=== PATIENT | female | born 1960 | race Caucasian/White ===

== ENCOUNTER 2024-07-17 02:19 | Emergency (ER) | payer BC, SELFPAY ==
[2024-07-17 02:22] VITALS: BP 154/86
[2024-07-17] MEDS: NSS 500 IV ×2 (02:43→05:07)
[2024-07-17] MEDS: ZOFRAN 4 MG IV ×2 (02:43→05:08)
[2024-07-17] MEDS: TORADOL 30 MG IV (02:50)
[2024-07-17 02:56] LABS: % Basophils 0.4 % (0-2); % Eosinophils 0.1 % (0-6); % Immature Granulocytes 0.4 % (0-0.5); % Lymphocytes 9.7 % (20.5-51.1); % Monocytes 5.3 % (1.7-9.3); % Neutrophils 84.1 % (42.2-75.2); Absolute Lymphocytes 0.9 10^3/uL (1.2-3.4); Absolute Monocytes 0.5 10^3/uL (0.1-0.6); Absolute Neutrophils 7.9 10^3/uL (1.4-6.5); Hematocrit 39.9 % (37.0-47.0); Hemoglobin 13.9 g/dL (12.0-16.0); Mean Corp Hgb Conc. 34.8 g/dL (33.0-37.0); Mean Corpuscular Hgb 29.7 pg (27.0-31.0); Mean Corpuscular Volume 85.3 fL (81.0-99.0); Mean Platelet Volume 9.2 fL (7.4-10.4); Nucleated Red Blood Cells % 0 %; Platelet Count 240 10^3/uL (130-400); Red Blood Cell Count 4.68 10^6/uL (4.20-5.40); Red Cell Dist. Width 12.7 % (11.5-14.5); White Blood Cell Count 9.4 10^3/uL (4.8-10.8)
[2024-07-17 03:00] LABS: Urine Albumin 2+ (Neg - Trace); Urine Bilirubin 3+ (Negative); Urine Character Cloudy (Clear); Urine Glucose Negative (Negative); Urine Ketone 3+ (Negative); Urine Leukocyte 2+ (Negative); Urine Nitrite Positive (Negative); Urine Occult Blood 3+ (Negative); Urine Urobilinogen 3+ (Neg - 1+); Urine pH 6.5 (5.0-9.0)
[2024-07-17 03:22] LABS: ALT (SGPT) 32 U/L (0-35); AST (SGOT) 37 U/L (14-36); Albumin 5.1 g/dl (3.5-5.0); Alkaline Phosphatase 98 U/L (38-126); Blood Urea Nitrogen 21 mg/dl (7-17); Calcium 10.4 mg/dl (8.4-10.2); Carbon Dioxide 22 mmol/L (22-30); Chloride 101 mmol/L (98-107); Glucose 150 mg/dl (70-99); Potassium 3.7 mmol/L (3.5-5.1); Sodium 138 mmol/L (135-145); Total Bilirubin 1.2 mg/dl (0.2-1.3); Total Protein 7.9 g/dl (6.3-8.2); eGFR > 60.00
[2024-07-17 03:42] LABS: Urine Color Orange
--- NOTE | 2024-07-17 04:44 | ED.GENMED ---
History of Present Illness
General
Chief Complaint: Flank Pain
Source: patient and spouse
Exam Limitations: none
Time Seen by Provider: 07/17/24 04:33
Nursing documentation reviewed up to this point in time: agreed with
History of Present Illness
History of Present Illness:
This is a 64-year-old woman with history of kidney stones reportedly passing stones uneventfully a 1 year ago as well as 2 to 3 years ago.
She underwent outpatient imaging last month and was noted to have several small nonobstructing right renal calculi.
Yesterday morning she developed urinary frequency, mild dysuria and thought that she had a UTI. She presented to urgent care and was started on Cipro for which she has had 1 dose. She has not had a fever nor chills. She then developed right flank
pain associated with nausea and vomiting around 4 to 5 PM. Initially mildly improved with Percocet but flank pain has worsened since midnight, radiates to right lower quadrant associated with nausea with multiple episodes of vomiting/dry heaves.
Current symptoms feel very similar to previous episode of kidney stones.
She denies diarrhea or constipation.
She has history of left foot fracture, fracture repair currently in a walking boot.
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
Past History
Past History
ED Past Medical History: CAD, Cancer (Skin cancer), HTN, Hypercholesterolemia and Other (Kidney stones)
ED Past Surgical History: Orthopedic (Left foot fracture repair)
Social History
Tobacco: Non-smoker
Alcohol: None
Personal:
Living: with family
Family History
Family History: Other (Noncontributory)
Phy Exam
Physical Exam
Physical Exam:
GENERAL: 64-year-old woman appears her stated age, awake and alert, appears mildly uncomfortable, mildly restless but cooperative. is accompanying.
EYE: anicteric
NECK: Supple, nontender, no meningismus, no significant adenopathy.
ENT: oral mucosa is moist. No rhinorrhea.
CARDIAC: Regular rate and rhythm. no murmur.
LUNGS: Clear breath sounds bilaterally, no acute respiratory distress, no wheezes/rales/rhonchi
ABDOMEN: Soft, nondistended, without focal tenderness, no r/g, mild right CVA tenderness to percussion. Normoactive BS.
NEUROLOGICAL: Alert and oriented x3, no focal neuro deficits. Gait is amezcua and steady.
SKIN: Warm and dry, normal color, skin intact. Erythematous macular rash over face and neck.
MUSCULOSKELETAL: No C/C/E. peripheral pulses are full and equal b/l. No palpable tenderness.
PSYCH: Normal and appropriate interaction.
Course
Orders/Labs/Results
Orders:
Orders
07/17/24 02:31
Ondansetron Injectable [Zofran] 4 mg .ROUTE .STK-MED ONE
07/17/24 02:32
Ketorolac [Toradol] 30 mg .ROUTE .STK-MED ONE
07/17/24 02:41
Complete Blood Count/With Diff Urgent
Comprehensive Metabolic Panel Urgent
Urinalysis Urgent
Date Specimen was Collected: 07/17/24
Time Specimen was Collected: 02:29
07/17/24 02:42
0.9% Sodium Chloride 500 ml [Nss] 500 ml IV BOLUS
07/17/24 02:43
Ondansetron Injectable [Zofran] 4 mg IV NOW STA
07/17/24 02:50
Ketorolac [Toradol] 30 mg IV NOW STA
07/17/24 04:43
0.9% Sodium Chloride 500 ml [Nss] 500 ml IV BOLUS
HYDROmorphone [Dilaudid] 0.5 mg IV NOW STA
Ondansetron Injectable [Zofran] 4 mg IV NOW STA
07/17/24 04:44
CT Abd/pel Without Iv Or Oral Urgent
Comment:
Reason For Exam: acute R flank pain with N/V
07/17/24 05:59
Add On - Microbiology Urgent
Tests Added?: urne c/s
07/17/24 06:11
Metoclopramide [Reglan] 10 mg IV NOW STA
Abnormal Lab Results
07/17/24
02:41
Absolute Neuts (auto) 7.9 H 10^3/uL
(1.4-6.5)
Absolute Lymphs (auto) 0.9 L 10^3/uL
(1.2-3.4)
Neutrophils % 84.1 H %
(42.2-75.2)
Lymphocytes % 9.7 L %
(20.5-51.1)
BUN 21 H mg/dl
(7-17)
Glucose 150 H mg/dl
(70-99)
Calcium 10.4 H mg/dl
(8.4-10.2)
AST 37 H U/L
(14-36)
Albumin 5.1 H g/dl
(3.5-5.0)
Urine Ketones 3+ A
(Negative)
Urine Occult Blood 3+ A
(Negative)
Urine Nitrite Positive A
(Negative)
Urine Bilirubin 3+ A
(Negative)
Urine Urobilinogen 3+ A
(Neg - 1+)
Ur Leukocyte Esterase 2+ A
(Negative)
Urine Albumin 2+ A
(Neg - Trace)
07/17/24 02:41
07/17/24 02:41
Vital Signs
Initial and Last Documented VS:
Initial Vital Signs
Pulse Resp BP
84 28 154/86
07/17/24 02:22 07/17/24 02:22 07/17/24 02:22
Last Documented Vital Signs
Pulse Resp BP Pulse Ox
77 16 115/57 99
07/17/24 06:25 07/17/24 06:25 07/17/24 06:25 07/17/24 06:25
MDM/Problems Addressed
Differential Diagnosis Includes:
Concern for ureteric stone, UTI, pyelonephritis. Other consideration is colitis, small bowel obstruction, diverticulitis.
Moderate but temporary improvement in pain and nausea with IV Toradol and Zofran. Pain has since returned.
Will continue IV fluids, given IV dose of Dilaudid and an additional dose of Zofran.
Will check CT abdomen and pelvis.
Chronic conditions affecting care: Kidney disease (History of kidney stones)
*Radiology
Radiology exam reviewed: radiology read reviewed
*Pulse Oximetry
Patient hypoxic: no
*Critical Care Note
Total Time (30-74mins, 75-104mins- exclusive of procedures): Not Applicable
Update Note
Update Note:
06:15
Patient reports improvement in right flank pain. Continues with some nausea but has had no vomiting.
Overall appears comfortable.
CT shows 2 mm stone at UVJ with mild right hydronephrosis.
Patient has prescription for Percocet at home but admits that she is hesitant to take this due to side effect of nausea.
She also has ondansetron at home for as needed nausea. Recommend she take this 4 times daily as needed for nausea.
Will trial an IV dose of Reglan now.
She remains afebrile.
Urinalysis is orange in color, positive for ketones, blood, nitrite, bilirubin etc, related to Azo use. Has already been started on antibiotic. Recommend she can continue the antibiotic and will await urine culture. It is reassuring that she has
not had a fever and white blood cell count is normal. Creatinine is normal.
Will add a short course of oral Toradol.
Will refer to urology for follow-up as needed.
Return precautions discussed.
ED Attending Note
-
Portions of this chart may have been created with voice recognition software.� Occasional wrong word or��sound alike� substitutions may have occurred due to the inherent limitations of voice recognition software.
Discharge Plan
Departure
Patient Disposition: Home (Routine Discharge)
Date of Disposition: 07/17/24
Time of Disposition: 06:14
Patient with high blood pressure during this ER visit?: No
Condition: Good
Discharge Problem:
Calculus of distal right ureter
Instructions: Kidney Stones (DC), How to Strain Your Urine
Prescriptions:
New
ketorolac 10 mg tablet
10 mg PO Q6H 4 Days Qty: 16 0RF
No Action
hydrocortisone 2 % Lotion
1 applic TOPICAL BID
Rx Instructions:
apply to face
rosuvastatin 10 mg Tablet
10 mg PO DAILY
aspirin 81 mg Capsule
81 mg PO DAILY
Referrals:
Maurilio Medel MD [Active] - As needed
Claritza Escudero MD [Family Provider] -
Interventions
Interventions:
*Risk Screen - Suicide Last Done: 07/17/24 02:22
*General Assessment Last Done: 07/17/24 03:02
*Neglect/Abuse Screening Last Done: 07/17/24 02:22
ED- Fall Risk Assessment Last Done: 07/17/24 03:02
*ED COVID-19 Vaccine History Last Done: 07/17/24 05:03
*Nursing Disposition Last Done: 07/17/24 06:32
ZX-Tehkan-Ffagyainyb Assessment Last Done: 07/17/24 05:16
Discharge Date and Time
Discharge Date/Time: 07/17/24 06:32
Print Language: AMHARIC
[2024-07-17 05:03] VITALS: BMI 24.6
[2024-07-17 05:05] VITALS: BP 125/64
[2024-07-17] MEDS: DILAUDID 0.5 MG IV (05:12)
[2024-07-17] MEDS: REGLAN 10 MG IV (06:16)
[2024-07-17 06:25] VITALS: BP 115/57
== END 2024-07-17 06:32 | disposition home or self-care (01) ==
LOC: EMR 02:19
PROVIDERS: EMERGENCY PHYSICIAN Emergency Medicine; FAMILY PHYSICIAN Internal Medicine
DX: N13.2 Hydronephrosis with renal and ureteral calculous obstruction (principal); I25.10 Atherosclerotic heart disease of native coronary artery without angina pectoris; I10 Essential (primary) hypertension; E78.00 Pure hypercholesterolemia, unspecified; Z85.828 Personal history of other malignant neoplasm of skin; Z87.442 Personal history of urinary calculi
CPT/HCPCS: 99284; 96374; 96375; 96376; 96361; 74176; 80053; 81003; 85025; 87086